=== PATIENT | male | born 1930 | race Caucasian/White ===

== ENCOUNTER 2017-06-12 11:44 | Inpatient (IN) | payer MEDICARE, BC ==
--- NOTE | 2017-06-12 12:01 | EDM.PDOC ---
<Flako Wilde - Last Filed: 06/12/17 12:16> ED HPI GENERAL MEDICAL PROBLEM - General Chief Complaint: General Stated Complaint: OX STAT LOW, LOW FEVER Time Seen by Provider: 06/12/17 12:00 Source of Information: Reports: Patient, Correction Records History Limitations: Reports: No Limitations - History of Present Illness INITIAL COMMENTS - FREE TEXT/NARRATIVE: History of present illness: [Fragile 86 rolled male brought in by [facility] the other bus. Indicating the patient has had low oxygen saturations as well as a low-grade fever. Upon arrival when patient was sitting up his O2 saturation was 85% on room air.] Review of systems: As per history of present illness and below otherwise all systems reviewed and negative. Past medical history: As per history of present illness and as reviewed below otherwise noncontributory. Surgical history: As per history of present illness and as reviewed below otherwise noncontributory. Social history: No reported history of drug or alcohol abuse. Family history: As per history of present illness and as reviewed below otherwise noncontributory. Physical exam: HEENT: Atraumatic, normocephalic, pupils reactive, negative for conjunctival pallor or scleral icterus, mucous membranes moist, throat clear, neck supple, nontender, trachea midline. Lungs: Clear to auscultation, breath sounds equal bilaterally, chest nontender. Heart: S1S2, regular, negative for clicks, rubs, or JVD. Abdomen: Soft, nondistended, nontender. Negative for masses or hepatosplenomegaly. Negative for costovertebral tenderness. Pelvis: Stable nontender. Genitourinary: Deferred. Rectal: Deferred. Extremities: Atraumatic, negative for cords or calf pain. Neurovascular unremarkable. Neuro: Arousable and lethargic. Able to follow simple commands but presents with a very flat affect. Skin: Pale without diaphoresis. Dr. Bentley in ED to see and evaluate the patient for admission Diagnostics: [CBC, CMP, lactic acid, lipase, amylase, blood cultures, chest x-ray] Therapeutics: [Saline lock] Impression: [#1 leukocytosis with history of aspiration rule out pneumonia] Plan: [Admit to [facility]Sur telemetry] Definitive disposition and diagnosis as appropriate pending reevaluation and review of above. - Related Data Allergies Allergy/AdvReac Type Severity Reaction Status Date / Time No Known Allergies Allergy Verified 06/12/17 12:04 Home Meds: Home Meds Acetaminophen [Tylenol Extra Strength] 1,000 mg PO BID 01/28/14 [History] Aspirin [Adult Low Dose Aspirin EC] 81 mg PO DAILY 01/28/14 [History] Carbidopa/Levodopa [Sinemet 25-100 mg] 25 - 100 mg PO TID 01/28/14 [History] Losartan Potassium 50 mg PO DAILY 01/28/14 [History] Nitroglycerin [Nitroglycerin Patch 0.1 MG/Hr] 1 patch TRDERM DAILY 01/28/14 [ History] Polyethylene Glycol 3350 [MiraLAX] 17 gm PO ASDIRECTED PRN 01/28/14 [History] Sertraline [Zoloft] 100 mg PO DAILY 01/28/14 [History] Diltiazem [Cardizem CD] 180 mg PO DAILY 03/18/16 [History] Memantine HCl [Namenda Xr] 1 tab PO DAILY 03/18/16 [History] buPROPion HCl [Wellbutrin Xl] 150 mg PO DAILY 06/12/17 [History] Past Medical History Cardiovascular History: Reports: Heart Murmur, Hypertension Genitourinary History: Reports: Other (See Below) Other Genitourinary History: suprapubic cath Neurological History: Reports: Parkinson's Dermatologic History: Reports: Other (See Below) Other Dermatologic History: malignant neoplasm of skin Social & Family History - Family History Family Medical History: Noncontributory - Tobacco Use Smoking Status *Q: Never Smoker Second Hand Smoke Exposure: No - Alcohol Use Days Per Week of Alcohol Use: 0 - Recreational Drug Use Recreational Drug Use: No ED ROS GENERAL - Review of Systems Review Of Systems: See Below (See history of present illness) ED EXAM, GENERAL - Physical Exam Exam: See Below (History of present illness) Course - Vital Signs Last Recorded V/S: Last Vital Signs Temp 36.8 C 06/12/17 11:56 Pulse 71 06/12/17 11:56 Resp 16 06/12/17 12:38 BP 115/63 06/12/17 12:38 Pulse Ox 96 06/12/17 12:38 - Orders/Labs/Meds Orders: Active Orders 24 hr Category Date Time Status Chest 2V [CR] Stat Exams 06/12/17 11:51 Taken Saline Lock Insert [OM.PC] Stat Oth 06/12/17 12:01 Ordered Medication Orders Acetaminophen (Tylenol) 650 mg RECTAL Q4H PRN PRN Reason: Pain (mild 1-3) Acetaminophen (Tylenol Extra Strength) 1,000 mg PO BID [facility] Aspirin (Halfprin) 81 mg PO DAILY [facility] Bupropion HCl (Wellbutrin Xl) 150 mg PO DAILY [facility] Diltiazem HCl (Cardizem Cd) 180 mg PO DAILY [facility] Enoxaparin Sodium (Lovenox) 30 mg SUBCUT DAILY [facility] Sodium Chloride (Normal Saline) 1,000 mls @ 50 mls/hr IV ASDIRECTED [facility] Piperacillin Sod/Tazobactam (Sod 2.25 gm/ Sodium Chloride) 50 mls @ 100 mls/hr IV Q6H [facility] Losartan Potassium (Cozaar) 50 mg PO DAILY [facility] Morphine Sulfate (Morphine) 2 mg IVPUSH Q2H PRN PRN Reason: Pain (severe 7-10) Stop: 06/13/17 13:48 Non-Formulary Medication (Memantine Hcl) 1 tab PO DAILY [facility] Polyethylene Glycol (Miralax) 17 gm PO ASDIRECTED PRN PRN Reason: Constipation Sertraline HCl (Zoloft) 100 mg PO DAILY [facility] Vancomycin HCl (Pharmacy To Dose - Vancomycin) 1 dose .XX ASDIRECTED [facility] Labs: Laboratory Tests 06/12/17 06/12/17 06/12/17 Range/Units 11:58 11:58 11:58 WBC 20.50 H (4.0-11.0) K/uL RBC 3.41 L (4.50-5.90) M/uL Hgb 9.1 L (13.0-17.0) g/dL Hct 28.0 L (38.0-50.0) % MCV 82.1 (80.0-98.0) fL MCH 26.7 L (27.0-32.0) pg MCHC 32.5 (31.0-37.0) g/dL RDW Std Deviation 48.4 (28.0-62.0) fl RDW Coeff of Page 16 H (11.0-15.0) % Plt Count 353 (150-400) K/uL MPV 9.00 (7.40-12.00) fL Neut % (Auto) 81.2 H (48.0-80.0) % Lymph % (Auto) 11.2 L (16.0-40.0) % [place] % (Auto) 7.5 (0.0-15.0) % Eos % (Auto) 0.1 (0.0-7.0) % Baso % (Auto) 0.0 (0.0-1.5) % Neut # (Auto) 16.7 H (1.4-5.7) K/uL Lymph # (Auto) 2.3 (0.6-2.4) K/uL [place] # (Auto) 1.5 H (0.0-0.8) K/uL Eos # (Auto) 0.0 (0.0-0.7) K/uL Baso # (Auto) 0.0 (0.0-0.1) K/uL Nucleated RBC % 0.0 /100WBC Nucleated RBCs # 0 K/uL Lactate 2.3 H (0.20-2.00) mmol/L Sodium 136 (136-146) mmol/L Potassium 4.3 (3.5-5.1) mmol/L Chloride 103 (98-110) mmol/L Carbon Dioxide 23 (21-31) mmol/L BUN 22 (6.0-23.0) mg/dL Creatinine 1.3 (0.6-1.5) mg/dL Est Cr Clr Drug Dosing 34.62 mL/min Estimated GFR (MDRD) 52.3 ml/min Glucose 149 H (60-110) mg/dL Calcium 8.7 L (8.8-10.8) mg/dL Total Bilirubin 0.4 (0.1-1.5) mg/dL AST 16 (5-40) IU/L ALT < 6 L (8-54) IU/L Alkaline Phosphatase 57 (40-150) Total Protein 6.7 (6.0-8.0) g/dL Albumin 3.6 (3.4-4.8) g/dL Globulin 3.1 (2.0-3.5) g/dL Albumin/Globulin Ratio 1.2 L (1.3-2.8) Amylase 47 (10-90) U/L Lipase 17 (7-80) U/L Meds: Medications Generic Name Dose Route Start Last Admin Trade Name Freq PRN Reason Stop Dose Admin Acetaminophen 650 mg 06/12/17 13:42 Tylenol RECTAL Q4H PRN Pain (mild 1-3) Acetaminophen 1,000 mg 06/12/17 21:00 Tylenol Extra Strength PO BID [facility] Aspirin 81 mg 06/13/17 09:00 Halfprin PO DAILY [facility] Bupropion HCl 150 mg 06/13/17 09:00 Wellbutrin Xl PO DAILY [facility] Diltiazem HCl 180 mg 06/13/17 09:00 Cardizem Cd PO DAILY [facility] Enoxaparin Sodium 30 mg 06/13/17 09:00 Lovenox SUBCUT DAILY [facility] Sodium Chloride 1,000 mls @ 50 mls/hr 06/12/17 13:45 Normal Saline IV ASDIRECTED [facility] Piperacillin Sod/Tazobactam 50 mls @ 100 mls/hr 06/12/17 14:00 Sod 2.25 gm/ Sodium Chloride IV Q6H [facility] Losartan Potassium 50 mg 06/13/17 09:00 Cozaar PO DAILY [facility] Morphine Sulfate 2 mg 06/12/17 13:42 Morphine IVPUSH 06/13/17 13:48 Q2H PRN Pain (severe 7-10) Non-Formulary Medication 1 tab 06/13/17 09:00 Memantine Hcl PO DAILY [facility] Polyethylene Glycol 17 gm 06/12/17 13:48 Miralax PO ASDIRECTED PRN Constipation Sertraline HCl 100 mg 06/13/17 09:00 Zoloft PO DAILY [facility] Vancomycin HCl 1 dose 06/12/17 14:00 Pharmacy To Dose - Vancomycin .XX ASDIRECTED [facility] Departure - Departure Time of Disposition: 12:49 Disposition: Admitted As Inpatient 66 Condition: Good Clinical Impression: Leukocytosis - Discharge Information <Carlene Loja Rubia - Last Filed: 06/12/17 13:56> ED HPI GENERAL MEDICAL PROBLEM - History of Present Illness INITIAL COMMENTS - FREE TEXT/NARRATIVE: Please correct the history of present illness to state that the patient on arrival was sitting upright in bed with an O2 sat of 95-96% on room air. That was a typographical error. Please also note that the patient had had a video swallow test in March of this year which he failed an according to staff they have been giving him pure foods and it is unclear how he is tolerating them and if they could have been repeat aspiration considering his history.
[2017-06-12 12:32] LABS: CHLORIDE,CL 103 mmol/L (98-110); SODIUM,NA 136 mmol/L (136-146)
[2017-06-12] MEDS ORDERED: Morphine 2 MG/ML Syringe IVPUSH PRN (13:42)
[2017-06-12] MEDS ORDERED: Acetaminophen 650 MG Supp RECTAL PRN (13:42)
[2017-06-12] MEDS ORDERED: Polyethylene Glycol 3350 Powder 17 GM Packet PO PRN (13:48)
--- NOTE | 2017-06-12 13:54 | PCM.HP ---
H&P History of Present Illness - General Date of Service: 06/12/17 Admit Problem/Dx: Admission Diagnosis/Problem Admission Diagnosis/Problem Aspiration pneumonia due to gastric secretions Source of Information: EMS Notes Reviewed, Family, Old Records History Limitations: Reports: Altered Mental Status - History of Present Illness Initial Comments - Free Text/Narative: The patient is a 86-year-old gentleman who is presented from detention primarily out of concern for alterations in his mental status, low-grade fever and low oxygen saturations. The patient has been a resident of the detention for approximately one year. The patient does have a history of severe Parkinson' s disease and last year was noted to have aspiration with thin liquids and was recommended that he be on a pured diet. The patient at the present time is somewhat altered secondary to the dementia and he is not considered to be a reliable historian. The patient's information has been taken from his emergency room charting and his lives apart from him. The patient has denied any pain. He's had no cough. The patient seems to be in no pain secondary to his bland reaction. The patient has Parkinson's and this is to be expected. The patient will open his eyes to command and he is hard of hearing. Onset of Symptoms: Reports: Gradual, Unknown/Unsure Duration of Symptoms: Reports: Chronic Location: Reports: Generalized Severity: Mild Improves with: Reports: None Worsens with: Reports: None Associated Symptoms: Reports: Fever/Chills, Shortness of Breath - Related Data Allergies/Adverse Reactions: Allergies Allergy/AdvReac Type Severity Reaction Status Date / Time No Known Allergies Allergy Verified 06/12/17 12:04 Home Medications: Home Meds Acetaminophen [Tylenol Extra Strength] 1,000 mg PO BID 01/28/14 [History] Aspirin [Adult Low Dose Aspirin EC] 81 mg PO DAILY 01/28/14 [History] Carbidopa/Levodopa [Sinemet 25-100 mg] 25 - 100 mg PO TID 01/28/14 [History] Losartan Potassium 50 mg PO DAILY 01/28/14 [History] Nitroglycerin [Nitroglycerin Patch 0.1 MG/Hr] 1 patch TRDERM DAILY 01/28/14 [ History] Polyethylene Glycol 3350 [MiraLAX] 17 gm PO ASDIRECTED PRN 01/28/14 [History] Sertraline [Zoloft] 100 mg PO DAILY 01/28/14 [History] Diltiazem [Cardizem CD] 180 mg PO DAILY 03/18/16 [History] Memantine HCl [Namenda Xr] 1 tab PO DAILY 03/18/16 [History] buPROPion HCl [Wellbutrin Xl] 150 mg PO DAILY 06/12/17 [History] Past Medical History HEENT History: Reports: Other (See Below) Other HEENT History: Dysphagia Cardiovascular History: Reports: Heart Murmur, Hypertension Respiratory History: Reports: SOB Genitourinary History: Reports: Other (See Below) Other Genitourinary History: suprapubic cath Musculoskeletal History: Reports: Other (See Below) Other Musculoskeletal History: weakness and inability to ambulate Neurological History: Reports: Parkinson's Other Neuro History: Dementia with Lewy Bodies. Psychiatric History: Reports: Dementia, Depression Endocrine/Metabolic History: Reports: None Hematologic History: Reports: Anemia Oncologic (Cancer) History: Reports: Other (See Below) Other Oncologic History: skin Dermatologic History: Reports: Other (See Below) Other Dermatologic History: malignant neoplasm of skin Social & Family History - Family History Family Medical History: Noncontributory - Tobacco Use Smoking Status *Q: Never Smoker Years of Tobacco use: 15 Packs/Tins Daily: 0.1 Used Tobacco, but Quit: Yes Month Tobacco Last Used: 1968 Second Hand Smoke Exposure: No - Caffeine Use Caffeine Use: Reports: None - Alcohol Use Days Per Week of Alcohol Use: 0 - Recreational Drug Use Recreational Drug Use: No - Living Situation & Occupation Living situation: Reports: Extended Care Facility Occupation: Retired H&P Review of Systems - Review of Systems: Review Of Systems: Unable To Obtain HEENT: Reports: Other (Hard of hearing) Exam - Exam Exam: See Below - Vital Signs Vital Signs: Last Vital Signs Temp 36.8 C 06/12/17 11:56 Pulse 71 06/12/17 11:56 Resp 16 06/12/17 11:56 BP 121/68 06/12/17 11:56 Pulse Ox 95 06/12/17 11:56 Weight: 60 kg - Exam Quality Assessment: No: Supplemental Oxygen General: Cooperative. No: Alert, Oriented HEENT: No: Mucosa Moist & Horace (Very dry) Neck: Supple, Trachea Midline Lungs: Decreased Breath Sounds, Rales Cardiovascular: Regular Rate, Regular Rhythm GI/Abdominal Exam: Soft, Non-Tender, Abnormal Bowel Sounds. No: Guarding Back Exam: Decreased Range of Motion Extremities: No Pedal Edema Skin: Warm, Dry Neuro Extensive - Mental Status: No: Alert, Oriented x3 Psychiatric: Other (Altered) - Patient Data Result Diagrams: 06/12/17 11:58 06/12/17 11:58 *Q Meaningful Use (ADM) - VTE *Q VTE Criteria *Q: VTE Mechanical Contraindications *Q: At Risk for Falls - VTE Risk Assess *Q Each Risk Factor Represents 1 Point: Serious Lung Disease Including Pneumonia, Less than 1 Month Total Score 1 Point Risk Factors: 1 Each Risk Factor Represents 3 Points: Age 75 Years or Greater Total Score 3 Point Risk Factors: 3 - Stroke *Q Stroke Criteria *Q: - AMI *Q AMI Criteria *Q: - Problem List (1) Aspiration pneumonia due to food (regurgitated) SNOMED Code(s): 29808635 ICD Code: J69.0 - PNEUMONITIS DUE TO INHALATION OF FOOD AND VOMIT Status: Acute Current Visit: Yes Problem Details: The patient is dehydrated Qualifiers: Laterality: unspecified laterality Lung location: unspecified part of lung Qualified Code(s): J69.0 - Pneumonitis due to inhalation of food and vomit (2) Hypoxia SNOMED Code(s): 585003964, 667096724 ICD Code: R09.02 - HYPOXEMIA Status: Chronic Priority: Medium Current Visit: Yes (3) Parkinson's disease dementia SNOMED Code(s): 222806602 ICD Code: G20 - PARKINSON'S DISEASE; F02.80 - DEMENTIA IN OTH DISEASES CLASSD ELSWHR W/O BEHAVRL DISTURB Status: Chronic Priority: Medium Current Visit: Yes Qualifiers: Dementia behavioral disturbance: without behavioral disturbance Qualified Code(s): G20 - Parkinson's disease; F02.80 - Dementia in other diseases classified elsewhere without behavioral disturbance (4) Dysphagia SNOMED Code(s): 20093649, 410654325 ICD Code: R13.10 - DYSPHAGIA, UNSPECIFIED Status: Chronic Priority: High Current Visit: Yes Qualifiers: Dysphagia type: unspecified Qualified Code(s): R13.10 - Dysphagia, unspecified (5) Anemia, chronic disease SNOMED Code(s): 294860051 ICD Code: D63.8 - ANEMIA IN OTHER CHRONIC DISEASES CLASSIFIED ELSEWHERE Status: Chronic Priority: Medium Current Visit: Yes (6) Altered mental status SNOMED Code(s): 350555212 ICD Code: R41.82 - ALTERED MENTAL STATUS, UNSPECIFIED Status: Chronic Priority: Medium Current Visit: Yes Qualifiers: Altered mental status type: disorientation Qualified Code(s): R41.0 - Disorientation, unspecified Problem List Initiated/Reviewed/Updated: Yes Orders Last 24hrs: Active Orders 24 hr Category Date Time Status Patient Status [ADT] Routine ADT 06/12/17 13:42 Ordered Bedrest Bedside Commode [RC] ASDIRECTED Care 06/12/17 13:42 Ordered Oxygen Therapy [RC] PRN Care 06/12/17 13:42 Ordered Pulse Oximetry [RC] CONTINUOUS Care 06/12/17 13:45 Ordered Urinary Catheter Assessment [RC] ASDIRECTED Care 06/12/17 13:42 Ordered VTE/DVT Education [RC] PER UNIT ROUTINE Care 06/12/17 13:42 Ordered Vital Signs [RC] Q4H Care 06/12/17 13:42 Ordered Mechanical Soft Diet [DIET] Diet 06/12/17 Dinner Ordered CBC WITH AUTO DIFF [HEME] AM Lab 06/13/17 05:11 Ordered COMPREHENSIVE METABOLIC PN,CMP [CHEM] AM Lab 06/13/17 05:11 Ordered MAGNESIUM [CHEM] AM Lab 06/13/17 05:11 Ordered PHOSPHORUS [CHEM] AM Lab 06/13/17 05:11 Ordered UA W/O MICROSCOPIC [URIN] Routine Lab 06/12/17 13:51 Uncollected Acetaminophen [Tylenol Extra Strength] Med 06/12/17 21:00 Ordered 1,000 mg PO BID Acetaminophen [Tylenol] Med 06/12/17 13:42 Ordered 650 mg RECTAL Q4H PRN Aspirin [Halfprin] Med 06/13/17 09:00 Ordered 81 mg PO DAILY Diltiazem [Cardizem CD] Med 06/13/17 09:00 Ordered 180 mg PO DAILY Enoxaparin [Lovenox] Med 06/13/17 09:00 Ordered 30 mg SUBCUT DAILY Losartan [Cozaar] Med 06/13/17 09:00 Ordered 50 mg PO DAILY Memantine HCl Med 06/13/17 09:00 Ordered 1 tab PO DAILY Morphine Med 06/12/17 13:42 Ordered 2 mg IVPUSH Q2H PRN Piperacillin/Tazobactam [Zosyn] 2.25 gm Med 06/12/17 14:00 Ordered Sodium Chloride 0.9% [Normal Saline] 50 ml IV Q6H Polyethylene Glycol 3350 [MiraLAX] Med 06/12/17 13:48 Ordered 17 gm PO ASDIRECTED PRN Sertraline [Zoloft] Med 06/13/17 09:00 Ordered 100 mg PO DAILY Sodium Chloride 0.9% [Normal Saline] 1,000 ml Med 06/12/17 13:45 Ordered IV ASDIRECTED Vancomycin Pharmacy to Dose [Pharmacy to Dose - Med 06/12/17 14:00 Ordered Vancomycin] 1 dose .XX ASDIRECTED buPROPion [Wellbutrin XL] Med 06/13/17 09:00 Ordered 150 mg PO DAILY Resuscitation Status Routine Resus Stat 06/12/17 13:42 Ordered Medication Orders Acetaminophen (Tylenol) 650 mg RECTAL Q4H PRN PRN Reason: Pain (mild 1-3) Acetaminophen (Tylenol Extra Strength) 1,000 mg PO BID [facility] Aspirin (Halfprin) 81 mg PO DAILY [facility] Bupropion HCl (Wellbutrin Xl) 150 mg PO DAILY [facility] Diltiazem HCl (Cardizem Cd) 180 mg PO DAILY [facility] Enoxaparin Sodium (Lovenox) 30 mg SUBCUT DAILY [facility] Sodium Chloride (Normal Saline) 1,000 mls @ 50 mls/hr IV ASDIRECTED [facility] Piperacillin Sod/Tazobactam (Sod 2.25 gm/ Sodium Chloride) 50 mls @ 100 mls/hr IV Q6H [facility] Losartan Potassium (Cozaar) 50 mg PO DAILY [facility] Morphine Sulfate (Morphine) 2 mg IVPUSH Q2H PRN PRN Reason: Pain (severe 7-10) Stop: 06/13/17 13:48 Non-Formulary Medication (Memantine Hcl) 1 tab PO DAILY [facility] Polyethylene Glycol (Miralax) 17 gm PO ASDIRECTED PRN PRN Reason: Constipation Sertraline HCl (Zoloft) 100 mg PO DAILY [facility] Assessment/Plan Comment:: The patient is a frail, chronically ill 86-year-old gentleman who was sent to the emergency department by [facility]. The patient does have a history of Parkinson's dementia and he is somewhat apparently altered from his baseline. The patient's oxygen saturations were in the 80s while he was at the home. Because of the patient's dysphagia and his being on a pured diet is likely that the patient has aspiration pneumonia along with dehydration that is not readily apparent on his chest x-ray. Regardless, I think it's important that we treat him for aspiration pneumonia with the use of vancomycin and Zosyn that of both been renally dosed. I suspect that once the patient is gently hydrated that he'll have a greater likelihood of appearance of pneumonia on his chest x-ray. The patient is also anemic and this is likely chronic for him but with fluid resuscitation I expect this to drop. The patient will have close monitoring with daily CBCs while he is here. The patient will also have oxygen support to keep his oxygen saturations above 90%. I've ordered a CBC, comprehensive metabolic panel, magnesium and phosphorus the morning. The patient 's leukocytosis should improve somewhat with the fluids. Once the patient is stabilized, his white cell count has normalized, his oxygen saturations have improved the patient taken center to be appropriate for discharge back to [facility] with oral antibiotics. This may take 2-3 days. This is the reason that he is admitted as an inpatient.
[2017-06-12] MEDS: Sodium Chloride 0.9% 1,000 ML IV SCH (14:43)
[2017-06-12] MEDS: Piperacillin/Tazobactam 2.25 GM in Sodium Chloride 0.9% 50 ML IV SCH ×2 (14:55→21:21)
[2017-06-12] MEDS: Carbidopa/Levodopa 25-100 MG Tab PO SCH ×2 (16:26→21:24)
[2017-06-12] MEDS: Acetaminophen 500 MG Tab PO SCH (21:24)
[2017-06-13] MEDS: Sodium Chloride 0.9% 1,000 ML IV SCH ×2 (01:06→10:21)
[2017-06-13] MEDS: Piperacillin/Tazobactam 2.25 GM in Sodium Chloride 0.9% 50 ML IV SCH ×4 (01:23→20:59)
[2017-06-13] MEDS: Carbidopa/Levodopa 25-100 MG Tab PO SCH ×3 (05:30→21:05)
[2017-06-13 07:19] LABS: CHLORIDE,CL 107 mmol/L (98-110); SODIUM,NA 137 mmol/L (136-146)
[2017-06-13] MEDS: Losartan 50 MG Tab PO SCH (08:17)
[2017-06-13] MEDS: Diltiazem 180 MG Cap.CD PO SCH (08:24)
[2017-06-13] MEDS: Acetaminophen 500 MG Tab PO SCH ×2 (08:24→20:25)
[2017-06-13] MEDS: buPROPion 150 MG Tab.ER PO SCH (08:26)
[2017-06-13] MEDS: Sertraline 100 MG Tab PO SCH (08:26)
[2017-06-13] MEDS: Aspirin 81 MG Tab.EC PO SCH (08:26)
[2017-06-13] MEDS: MEMANTINE HCL 28 MG PO SCH (08:27)
[2017-06-13] MEDS: Heparin Sodium 5,000 Units/ML Vial SUBCUT SCH ×2 (08:46→20:24)
[2017-06-13] MEDS ORDERED: Enoxaparin 30 MG/0.3 ML Syringe SUBCUT SCH (09:00)
[2017-06-13] MEDS ORDERED: diphenhydrAMINE 50 MG Cap PO ONE (13:23)
--- NOTE | 2017-06-13 15:41 | PCM.PN ---
- General Info Date of Service: 06/13/17 Admission Dx/Problem (Free Text): Admission Diagnosis/Problem Admission Diagnosis/Problem Aspiration pneumonia due to gastric secretions Subjective Update: The patient seems more alert today. Functional Status: Reports: Pain Controlled - Review of Systems Systems Review Comment:: Not able to participate in review of systems - Patient Data Vitals - Most Recent: Last Vital Signs Temp 37.1 C 06/13/17 14:14 Pulse 72 06/13/17 14:14 Resp 16 06/13/17 14:14 BP 153/70 H 06/13/17 14:14 Pulse Ox 100 06/13/17 14:14 Weight - Most Recent: 60 kg I&O - Last 24 Hours: Intake & Output 06/13/17 06/13/17 06/13/17 06:59 14:59 22:59 Intake Total 1530 674 Output Total 400 Balance 1130 674 Lab Results Last 24 Hours: Laboratory Results - last 24 hr 06/12/17 06/13/17 06/13/17 Range/Units 17:30 06:40 06:40 WBC 17.72 H (4.0-11.0) K/uL RBC 2.64 L (4.50-5.90) M/uL Hgb 6.8 L (13.0-17.0) g/dL Hct 21.4 L (38.0-50.0) % MCV 81.1 (80.0-98.0) fL MCH 25.8 L (27.0-32.0) pg MCHC 31.8 (31.0-37.0) g/dL RDW Std Deviation 48.4 (28.0-62.0) fl RDW Coeff of Page 16 H (11.0-15.0) % Plt Count 280 (150-400) K/uL MPV 8.60 (7.40-12.00) fL Neut % (Auto) 79.8 (48.0-80.0) % Lymph % (Auto) 11.3 L (16.0-40.0) % [place] % (Auto) 8.2 (0.0-15.0) % Eos % (Auto) 0.5 (0.0-7.0) % Baso % (Auto) 0.2 (0.0-1.5) % Neut # (Auto) 14.1 H (1.4-5.7) K/uL Lymph # (Auto) 2.0 (0.6-2.4) K/uL [place] # (Auto) 1.5 H (0.0-0.8) K/uL Eos # (Auto) 0.1 (0.0-0.7) K/uL Baso # (Auto) 0.0 (0.0-0.1) K/uL Nucleated RBC % 0.0 /100WBC Nucleated RBCs # 0 K/uL Lactate 1.5 (0.20-2.00) mmol/L Sodium 137 (136-146) mmol/L Potassium 3.9 (3.5-5.1) mmol/L Chloride 107 (98-110) mmol/L Carbon Dioxide 25 (21-31) mmol/L BUN 21 (6.0-23.0) mg/dL Creatinine 1.0 (0.6-1.5) mg/dL Est Cr Clr Drug Dosing 45.00 mL/min Estimated GFR (MDRD) > 60.0 ml/min Glucose 131 H (60-110) mg/dL Calcium 8.2 L (8.8-10.8) mg/dL Phosphorus 2.5 (2.4-4.7) mg/dL Magnesium 1.5 (1.5-2.3) mEq/L Total Bilirubin 0.5 (0.1-1.5) mg/dL AST 11 (5-40) IU/L ALT < 6 L (8-54) IU/L Alkaline Phosphatase 46 (40-150) Total Protein 5.5 L (6.0-8.0) g/dL Albumin 3.1 L (3.4-4.8) g/dL Globulin 2.4 (2.0-3.5) g/dL Albumin/Globulin Ratio 1.3 (1.3-2.8) Blood Type Antibody Screen Crossmatch 06/13/17 Range/Units 11:43 WBC (4.0-11.0) K/uL RBC (4.50-5.90) M/uL Hgb (13.0-17.0) g/dL Hct (38.0-50.0) % MCV (80.0-98.0) fL MCH (27.0-32.0) pg MCHC (31.0-37.0) g/dL RDW Std Deviation (28.0-62.0) fl RDW Coeff of Page (11.0-15.0) % Plt Count (150-400) K/uL MPV (7.40-12.00) fL Neut % (Auto) (48.0-80.0) % Lymph % (Auto) (16.0-40.0) % [place] % (Auto) (0.0-15.0) % Eos % (Auto) (0.0-7.0) % Baso % (Auto) (0.0-1.5) % Neut # (Auto) (1.4-5.7) K/uL Lymph # (Auto) (0.6-2.4) K/uL [place] # (Auto) (0.0-0.8) K/uL Eos # (Auto) (0.0-0.7) K/uL Baso # (Auto) (0.0-0.1) K/uL Nucleated RBC % /100WBC Nucleated RBCs # K/uL Lactate (0.20-2.00) mmol/L Sodium (136-146) mmol/L Potassium (3.5-5.1) mmol/L Chloride (98-110) mmol/L Carbon Dioxide (21-31) mmol/L BUN (6.0-23.0) mg/dL Creatinine (0.6-1.5) mg/dL Est Cr Clr Drug Dosing mL/min Estimated GFR (MDRD) ml/min Glucose (60-110) mg/dL Calcium (8.8-10.8) mg/dL Phosphorus (2.4-4.7) mg/dL Magnesium (1.5-2.3) mEq/L Total Bilirubin (0.1-1.5) mg/dL AST (5-40) IU/L ALT (8-54) IU/L Alkaline Phosphatase (40-150) Total Protein (6.0-8.0) g/dL Albumin (3.4-4.8) g/dL Globulin (2.0-3.5) g/dL Albumin/Globulin Ratio (1.3-2.8) Blood Type A NEGATIVE Antibody Screen NEGATIVE Crossmatch See Detail Med Orders - Current: Current Medications Acetaminophen (Tylenol) 650 mg RECTAL Q4H PRN PRN Reason: Pain (mild 1-3) Acetaminophen (Tylenol Extra Strength) 1,000 mg PO BID [facility] Last Admin: 06/13/17 08:24 Dose: 1,000 mg Aspirin (Halfprin) 81 mg PO DAILY [facility] Last Admin: 06/13/17 08:26 Dose: 81 mg Bupropion HCl (Wellbutrin Xl) 150 mg PO DAILY [facility] Last Admin: 06/13/17 08:26 Dose: 150 mg Carbidopa/Levodopa (Sinemet 25-100 Mg) 1 tab PO TID [facility] Last Admin: 06/13/17 13:12 Dose: 1 tab Diltiazem HCl (Cardizem Cd) 180 mg PO DAILY [facility] Last Admin: 06/13/17 08:24 Dose: 180 mg Furosemide (Lasix) 20 mg IV Q4H [facility] Stop: 06/13/17 20:01 Heparin Sodium (Porcine) (Heparin Sodium) 5,000 units SUBCUT BID [facility] Last Admin: 06/13/17 08:46 Dose: 5,000 units Sodium Chloride (Normal Saline) 1,000 mls @ 125 mls/hr IV ASDIRECTED [facility] Last Admin: 06/13/17 10:21 Dose: 125 mls/hr Piperacillin Sod/Tazobactam (Sod 2.25 gm/ Sodium Chloride) 50 mls @ 100 mls/hr IV Q6H [facility] Last Admin: 06/13/17 13:10 Dose: 100 mls/hr Vancomycin HCl 1 gm/ Sodium (Chloride) 250 mls @ 166.667 mls/hr IV Q24H [facility] Last Admin: 06/13/17 14:27 Dose: 166.667 mls/hr Losartan Potassium (Cozaar) 50 mg PO DAILY [facility] Last Admin: 06/13/17 08:17 Dose: 50 mg Memantine Hcl 1 Tab (28mg Er) 1 each PO DAILY [facility] Last Admin: 06/13/17 08:27 Dose: 1 each Polyethylene Glycol (Miralax) 17 gm PO ASDIRECTED PRN PRN Reason: Constipation Sertraline HCl (Zoloft) 100 mg PO DAILY [facility] Last Admin: 06/13/17 08:26 Dose: 100 mg Vancomycin HCl (Pharmacy To Dose - Vancomycin) 1 dose .XX ASDIRECTED [facility] Discontinued Medications Diphenhydramine HCl (Benadryl) 50 mg PO ONETIME ONE Stop: 06/13/17 13:24 Last Admin: 06/13/17 13:39 Dose: 50 mg Furosemide 20 mg/ Sodium (Chloride) 52 mls @ 100 mls/hr IV Q4HR [facility] Stop: 06/13/17 20:32 Morphine Sulfate (Morphine) 2 mg IVPUSH Q2H PRN PRN Reason: Pain (severe 7-10) Stop: 06/13/17 13:48 - Exam Quality Assessment: No: Supplemental Oxygen General: Cooperative, No Acute Distress. No: Alert HEENT: Pupils Equal, Pupils Reactive Neck: Supple, Trachea Midline Lungs: Clear to Auscultation, Normal Respiratory Effort Cardiovascular: Regular Rate GI/Abdominal Exam: Normal Bowel Sounds, Soft, No Distention Back Exam: Decreased Range of Motion Extremities: No Pedal Edema Skin: Warm, Dry Neurological: No New Focal Deficit Psy/Mental Status: Normal Affect. No: Alert - Problem List & Annotations (1) Aspiration pneumonia due to food (regurgitated) SNOMED Code(s): 67328312 Code(s): J69.0 - PNEUMONITIS DUE TO INHALATION OF FOOD AND VOMIT Status: Acute Current Visit: Yes Qualifiers: Laterality: unspecified laterality Lung location: unspecified part of lung Qualified Code(s): J69.0 - Pneumonitis due to inhalation of food and vomit Annotation/Comment:: The patient is dehydrated (2) Hypoxia SNOMED Code(s): 465391731, 761058548 Code(s): R09.02 - HYPOXEMIA Status: Chronic Priority: Medium Current Visit: Yes (3) Parkinson's disease dementia SNOMED Code(s): 493122345 Code(s): G20 - PARKINSON'S DISEASE; F02.80 - DEMENTIA IN OTH DISEASES CLASSD ELSWHR W/O BEHAVRL DISTURB Status: Chronic Priority: Medium Current Visit : Yes Qualifiers: Dementia behavioral disturbance: without behavioral disturbance Qualified Code(s): G20 - Parkinson's disease; F02.80 - Dementia in other diseases classified elsewhere without behavioral disturbance (4) Dysphagia SNOMED Code(s): 14567128, 417094106 Code(s): R13.10 - DYSPHAGIA, UNSPECIFIED Status: Chronic Priority: High Current Visit: Yes Qualifiers: Dysphagia type: unspecified Qualified Code(s): R13.10 - Dysphagia, unspecified (5) Anemia, chronic disease SNOMED Code(s): 133594030 Code(s): D63.8 - ANEMIA IN OTHER CHRONIC DISEASES CLASSIFIED ELSEWHERE Status: Chronic Priority: Medium Current Visit: Yes Annotation/Comment:: Transfused 2 units of packed red blood cells (6) Altered mental status SNOMED Code(s): 596807695 Code(s): R41.82 - ALTERED MENTAL STATUS, UNSPECIFIED Status: Chronic Priority: Medium Current Visit: Yes Qualifiers: Altered mental status type: disorientation Qualified Code(s): R41.0 - Disorientation, unspecified - Problem List Review Problem List Initiated/Reviewed/Updated: Yes - My Orders Last 24 Hours: My Active Orders 06/12/17 14:45 Vancomycin [Vancocin] 1 gm Sodium Chloride 0.9% [Normal Saline] 250 ml IV Q24H 06/12/17 15:37 Carbidopa/Levodopa [Sinemet 25-100 mg] 1 tab PO TID 06/12/17 18:05 Consult to Speech Language Pathology [GUIDE [employer]G TRAINER Evaluation and Treatment] [CONS] Routine 06/12/17 21:00 Acetaminophen [Tylenol Extra Strength] 1,000 mg PO BID 06/12/17 Dinner Pureed Diet [DIET] 06/13/17 09:00 Aspirin [Halfprin] 81 mg PO DAILY Diltiazem [Cardizem CD] 180 mg PO DAILY Heparin Sodium 5,000 units SUBCUT BID Losartan [Cozaar] 50 mg PO DAILY Patient's Own Medication [Ptom] 1 each PO DAILY Sertraline [Zoloft] 100 mg PO DAILY buPROPion [Wellbutrin XL] 150 mg PO DAILY 06/13/17 11:02 Modified Barium Swallow Study [Swallowing Function w Video] [CR] Routine 06/13/17 11:33 Transfuse PRBC [Transfuse Red Blood Cells] [COMM] Routine 06/13/17 11:43 RED BLOOD CELLS LP [BBK] Routine TYPE AND SCREEN [BBK] Routine 06/13/17 13:06 Transfuse PRBC [Transfuse Red Blood Cells] [COMM] Routine 06/13/17 16:00 Furosemide [Lasix] 20 mg IV Q4H 06/15/17 14:00 VANCOMYCIN TROUGH [CHEM] Routine - Plan Plan:: The patient is chronically ill 86-year-old gentleman who has been admitted as an inpatient secondary to concern for aspiration pneumonia. The patient's hemoglobin today was 6.8 g/dL. I've recommended transfusion of 2 units packed red blood cells. The patient is also having Benadryl, Tylenol and Lasix with the units of blood. The patient is also scheduled tomorrow for swallow study secondary to his abnormal study around a year ago. I suspect that with the patient's dementia that is gotten worse and his aspiration probably worsening. Otherwise the patient is a frail chronically ill 86-year-old gentleman who will be afforded treatment for his aspiration pneumonia and anemia in light of his DO NOT RESUSCITATE DO NOT INTUBATE category. I suspect that the patient will be appropriate for return to [facility] likely in one to 2 days. I've ordered repeat laboratory studies for the patient and all see him tomorrow and his overall treatment plan will be adjusted.
[2017-06-13] MEDS ORDERED: Furosemide 20 MG in Sodium Chloride 0.9% 50 ML IV SCH (16:00)
[2017-06-13] MEDS ORDERED: Gentamicin Pediatric 10 MG/ML 2 ML SDV SCH ×2 (16:30→21:00)
[2017-06-13] MEDS ORDERED: Acetaminophen 325 MG Tab PO ONE (16:36)
--- NOTE | 2017-06-13 16:43 | CR ---
EXAM DATE: 06/12/17 PATIENT'S AGE: 86 Patient: PETE MCDONALD Facility: [place], [place] Site . Site : [id number] Study: XRay Chest [id number]/10/2017 12:25:58 PM Ordering Physician: Doctor Cain Final Report: HISTORY: Possible aspiration. TECHNIQUE: Two views of the chest. COMPARISON: 05/12/2017. FINDINGS: Low lung volumes. There is no lung consolidation or pulmonary edema. No pneumothorax or pleural effusion. Degenerative changes of the spine. IMPRESSION: No acute disease. Dictated by Jet Fofana MD @ 06/12/2017 12:40:21 PM Dictated by: Jet Fofana MD @ 06/12/2017 12:40:27 (Electronic Signature) Report Signed by Proxy. [facility]ITAL[facility]
[2017-06-13] MEDS: Furosemide 20 MG/2 ML VIAL IV SCH ×2 (16:54→20:59)
[2017-06-14] MEDS: Piperacillin/Tazobactam 2.25 GM in Sodium Chloride 0.9% 50 ML IV SCH ×4 (01:21→20:21)
[2017-06-14] MEDS: Sodium Chloride 0.9% 1,000 ML IV SCH (01:39)
[2017-06-14] MEDS: Carbidopa/Levodopa 25-100 MG Tab PO SCH ×3 (06:06→21:09)
[2017-06-14 06:32] LABS: CHLORIDE,CL 108 mmol/L (98-110); SODIUM,NA 139 mmol/L (136-146)
[2017-06-14] MEDS: buPROPion 150 MG Tab.ER PO SCH (08:00)
[2017-06-14] MEDS: Acetaminophen 500 MG Tab PO SCH ×2 (08:00→21:08)
[2017-06-14] MEDS: Heparin Sodium 5,000 Units/ML Vial SUBCUT SCH ×2 (08:00→21:07)
[2017-06-14] MEDS: Losartan 50 MG Tab PO SCH (08:04)
[2017-06-14] MEDS: MEMANTINE HCL 28 MG PO SCH (08:05)
[2017-06-14] MEDS: Sertraline 100 MG Tab PO SCH (08:05)
[2017-06-14] MEDS: Diltiazem 180 MG Cap.CD PO SCH (08:05)
[2017-06-14] MEDS: Aspirin 81 MG Tab.EC PO SCH (08:05)
[2017-06-14] MEDS ORDERED: Potassium Chloride 20 MEQ Tab.ER PO ONE (09:22)
--- NOTE | 2017-06-14 10:44 | PCM.PN ---
- General Info Date of Service: 06/14/17 Admission Dx/Problem (Free Text): Admission Diagnosis/Problem Admission Diagnosis/Problem Aspiration pneumonia due to gastric secretions Subjective Update: Sitting in chair. Has no complaints. Doesn't answer appropriately. Denies pain Spoke with on second rounds, reports he is looking much improved. Awaiting swallow eval this afternoon. Functional Status: Reports: Ambulating - Patient Data Vitals - Most Recent: Last Vital Signs Temp 98.5 F 06/14/17 08:00 Pulse 61 06/14/17 07:29 Resp 16 06/14/17 07:29 BP 149/71 H 06/14/17 08:04 Pulse Ox 94 L 06/14/17 07:29 Weight - Most Recent: 60 kg I&O - Last 24 Hours: Intake & Output 06/13/17 06/14/17 06/14/17 22:59 06:59 14:59 Intake Total 1427 150 Output Total 525 3100 Balance 902 -2950 Lab Results Last 24 Hours: Laboratory Results - last 24 hr 06/13/17 06/13/17 06/14/17 Range/Units 11:43 16:31 05:39 WBC 11.53 H (4.0-11.0) K/uL RBC 3.58 L (4.50-5.90) M/uL Hgb 9.6 L (13.0-17.0) g/dL Hct 28.9 L (38.0-50.0) % MCV 80.7 (80.0-98.0) fL MCH 26.8 L (27.0-32.0) pg MCHC 33.2 (31.0-37.0) g/dL RDW Std Deviation 47.9 (28.0-62.0) fl RDW Coeff of Page 16 H (11.0-15.0) % Plt Count 270 (150-400) K/uL MPV 9.00 (7.40-12.00) fL Neut % (Auto) 75.3 (48.0-80.0) % Lymph % (Auto) 14.9 L (16.0-40.0) % Pine % (Auto) 8.4 (0.0-15.0) % Eos % (Auto) 1.2 (0.0-7.0) % Baso % (Auto) 0.2 (0.0-1.5) % Neut # (Auto) 8.7 H (1.4-5.7) K/uL Lymph # (Auto) 1.7 (0.6-2.4) K/uL Pine # (Auto) 1.0 H (0.0-0.8) K/uL Eos # (Auto) 0.1 (0.0-0.7) K/uL Baso # (Auto) 0.0 (0.0-0.1) K/uL Nucleated RBC % 0.0 /100WBC Nucleated RBCs # 0 K/uL Sodium (136-146) mmol/L Potassium (3.5-5.1) mmol/L Chloride (98-110) mmol/L Carbon Dioxide (21-31) mmol/L BUN (6.0-23.0) mg/dL Creatinine (0.6-1.5) mg/dL Est Cr Clr Drug Dosing mL/min Estimated GFR (MDRD) ml/min Glucose (60-110) mg/dL Calcium (8.8-10.8) mg/dL Total Bilirubin (0.1-1.5) mg/dL AST (5-40) IU/L ALT (8-54) IU/L Alkaline Phosphatase (40-150) Total Protein (6.0-8.0) g/dL Albumin (3.4-4.8) g/dL Globulin (2.0-3.5) g/dL Albumin/Globulin Ratio (1.3-2.8) Blood Type A NEGATIVE Antibody Screen NEGATIVE Crossmatch See Detail Tx Rx Implicated Unit 1 [id number] Unit 1 Component RBC Pre-Trans Blood Type TNP Pre-Trans Vis Hemolysis NEGATIVE Pre-Trans Icterus NEGATIVE Pre-Trans ELLEN IgG TNP Pre-Trans ELLEN Poly TNP Post-Trans Blood Type A NEGATIVE Post-Tx Visible Hemolys NEGATIVE Post-Trans Icterus NEGATIVE Post-Trans ELLEN IgG TNP Post-Trans ELLEN Poly NEGATIVE Reaction Interpretation NON-HEM TRANSF RX 06/14/17 Range/Units 05:39 WBC (4.0-11.0) K/uL RBC (4.50-5.90) M/uL Hgb (13.0-17.0) g/dL Hct (38.0-50.0) % MCV (80.0-98.0) fL MCH (27.0-32.0) pg MCHC (31.0-37.0) g/dL RDW Std Deviation (28.0-62.0) fl RDW Coeff of Page (11.0-15.0) % Plt Count (150-400) K/uL MPV (7.40-12.00) fL Neut % (Auto) (48.0-80.0) % Lymph % (Auto) (16.0-40.0) % Pine % (Auto) (0.0-15.0) % Eos % (Auto) (0.0-7.0) % Baso % (Auto) (0.0-1.5) % Neut # (Auto) (1.4-5.7) K/uL Lymph # (Auto) (0.6-2.4) K/uL Pine # (Auto) (0.0-0.8) K/uL Eos # (Auto) (0.0-0.7) K/uL Baso # (Auto) (0.0-0.1) K/uL Nucleated RBC % /100WBC Nucleated RBCs # K/uL Sodium 139 (136-146) mmol/L Potassium 3.3 L (3.5-5.1) mmol/L Chloride 108 (98-110) mmol/L Carbon Dioxide 23 (21-31) mmol/L BUN 18 (6.0-23.0) mg/dL Creatinine 1.0 (0.6-1.5) mg/dL Est Cr Clr Drug Dosing 45.00 mL/min Estimated GFR (MDRD) > 60.0 ml/min Glucose 96 (60-110) mg/dL Calcium 8.2 L (8.8-10.8) mg/dL Total Bilirubin 0.8 (0.1-1.5) mg/dL AST 9 (5-40) IU/L ALT < 6 L (8-54) IU/L Alkaline Phosphatase 46 (40-150) Total Protein 5.8 L (6.0-8.0) g/dL Albumin 3.1 L (3.4-4.8) g/dL Globulin 2.7 (2.0-3.5) g/dL Albumin/Globulin Ratio 1.2 L (1.3-2.8) Blood Type Antibody Screen Crossmatch Tx Rx Implicated Unit 1 Unit 1 Component Pre-Trans Blood Type Pre-Trans Vis Hemolysis Pre-Trans Icterus Pre-Trans ELLEN IgG Pre-Trans ELLEN Poly Post-Trans Blood Type Post-Tx Visible Hemolys Post-Trans Icterus Post-Trans ELLEN IgG Post-Trans ELLEN Poly Reaction Interpretation Med Orders - Current: Current Medications Acetaminophen (Tylenol) 650 mg RECTAL Q4H PRN PRN Reason: Pain (mild 1-3) Acetaminophen (Tylenol Extra Strength) 1,000 mg PO BID [facility] Last Admin: 06/14/17 08:00 Dose: 1,000 mg Aspirin (Halfprin) 81 mg PO DAILY [facility] Last Admin: 06/14/17 08:05 Dose: 81 mg Bupropion HCl (Wellbutrin Xl) 150 mg PO DAILY [facility] Last Admin: 06/14/17 08:00 Dose: 150 mg Carbidopa/Levodopa (Sinemet 25-100 Mg) 1 tab PO TID [facility] Last Admin: 06/14/17 06:06 Dose: 1 tab Diltiazem HCl (Cardizem Cd) 180 mg PO DAILY [facility] Last Admin: 06/14/17 08:05 Dose: 180 mg Heparin Sodium (Porcine) (Heparin Sodium) 5,000 units SUBCUT BID [facility] Last Admin: 06/14/17 08:00 Dose: 5,000 units Piperacillin Sod/Tazobactam (Sod 2.25 gm/ Sodium Chloride) 50 mls @ 100 mls/hr IV Q6H [facility] Last Admin: 06/14/17 08:58 Dose: 100 mls/hr Vancomycin HCl 1 gm/ Sodium (Chloride) 250 mls @ 166.667 mls/hr IV Q24H [facility] Last Admin: 06/13/17 14:27 Dose: 166.667 mls/hr Gentamicin Sulfate 80 mg/ (Sodium Chloride) 502 mls @ 502 mls/hr .XX MoWeFr@ 2100 [facility] Last Admin: 06/13/17 20:05 Dose: 502 mls/hr Losartan Potassium (Cozaar) 50 mg PO DAILY [facility] Last Admin: 06/14/17 08:04 Dose: 50 mg Memantine Hcl 1 Tab (28mg Er) 1 each PO DAILY [facility] Last Admin: 06/14/17 08:05 Dose: 1 each Polyethylene Glycol (Miralax) 17 gm PO ASDIRECTED PRN PRN Reason: Constipation Sertraline HCl (Zoloft) 100 mg PO DAILY [facility] Last Admin: 06/14/17 08:05 Dose: 100 mg Vancomycin HCl (Pharmacy To Dose - Vancomycin) 1 dose .XX ASDIRECTED [facility] Discontinued Medications Acetaminophen (Tylenol) 650 mg PO NOW ONE Stop: 06/13/17 16:37 Last Admin: 06/13/17 16:53 Dose: 650 mg Diphenhydramine HCl (Benadryl) 50 mg PO ONETIME ONE Stop: 06/13/17 13:24 Last Admin: 06/13/17 13:39 Dose: 50 mg Furosemide (Lasix) 20 mg IV Q4H [facility] Stop: 06/13/17 20:01 Last Admin: 06/13/17 20:59 Dose: 20 mg Gentamicin Sulfate (Gentamicin) 80 mg .XX MOWEFR [facility] Last Admin: 06/13/17 18:00 Dose: Not Given Gentamicin Sulfate (Gentamicin) 80 mg .XX MOWEFR [facility] Sodium Chloride (Normal Saline) 1,000 mls @ 125 mls/hr IV ASDIRECTED [facility] Last Admin: 06/14/17 01:39 Dose: 125 mls/hr Furosemide 20 mg/ Sodium (Chloride) 52 mls @ 100 mls/hr IV Q4HR [facility] Stop: 06/13/17 20:32 Morphine Sulfate (Morphine) 2 mg IVPUSH Q2H PRN PRN Reason: Pain (severe 7-10) Stop: 06/13/17 13:48 Potassium Chloride (Klor-Con M20) 40 meq PO ONETIME ONE Stop: 06/14/17 09:23 Last Admin: 06/14/17 09:54 Dose: 40 meq - Exam Quality Assessment: Urine Catheter (Suprapubic) General: Alert, Cooperative, No Acute Distress. No: Oriented Neck: Supple Lungs: Clear to Auscultation, Normal Respiratory Effort Cardiovascular: Regular Rate, Regular Rhythm, No Murmurs GI/Abdominal Exam: Normal Bowel Sounds, Soft, Non-Tender, No Organomegaly, No Distention, No Abnormal Bruit, No Mass, Pelvis Stable, Other (Suprapubic catheter in place, scant drainage from around insertion site, no erythema.) Extremities: Normal Inspection, Normal Range of Motion, Non-Tender, No Pedal Edema, Normal Capillary Refill Neurological: No New Focal Deficit Psy/Mental Status: Alert, Normal Affect, Normal Mood - Problem List & Annotations (1) Aspiration pneumonia due to food (regurgitated) SNOMED Code(s): 51886621 Code(s): J69.0 - PNEUMONITIS DUE TO INHALATION OF FOOD AND VOMIT Status: Acute Current Visit: Yes Qualifiers: Laterality: unspecified laterality Lung location: unspecified part of lung Qualified Code(s): J69.0 - Pneumonitis due to inhalation of food and vomit Annotation/Comment:: The patient is dehydrated (2) Dysphagia SNOMED Code(s): 27223248, 441085926 Code(s): R13.10 - DYSPHAGIA, UNSPECIFIED Status: Chronic Priority: High Current Visit: Yes Qualifiers: Dysphagia type: unspecified Qualified Code(s): R13.10 - Dysphagia, unspecified (3) Hypoxia SNOMED Code(s): 530812156, 728197973 Code(s): R09.02 - HYPOXEMIA Status: Chronic Priority: Medium Current Visit: Yes (4) Parkinson's disease dementia SNOMED Code(s): 886899967 Code(s): G20 - PARKINSON'S DISEASE; F02.80 - DEMENTIA IN OTH DISEASES CLASSD ELSWHR W/O BEHAVRL DISTURB Status: Chronic Priority: Medium Current Visit : Yes Qualifiers: Dementia behavioral disturbance: without behavioral disturbance Qualified Code(s): G20 - Parkinson's disease; F02.80 - Dementia in other diseases classified elsewhere without behavioral disturbance (5) History of suprapubic catheter SNOMED Code(s): 648406462 Code(s): Z98.890 - OTHER SPECIFIED POSTPROCEDURAL STATES Status: Chronic Current Visit: Yes - Problem List Review Problem List Initiated/Reviewed/Updated: Yes - Plan Plan:: This 86 year old male admitted with aspiration pneumonia and AMS 1. Aspiration Pneumonia: Continue with Vancomycin and Zosyn. Leukocytosis improving. Swallow study this afternoon. Likely secondary to worsening dementia and Parkinson's disease worsening dysphagia. 2. Anemia: Hgb improved today after 2 units pRBCs to 9.6. Will monitor closely. 3. Parkinson's with dementia: Continue Sinemet and Memantine, as well as Wellbutrin and Zoloft. 4. HTN: Continue Diltiazem and Losartan. VTE prophylaxis: Heparin. Dispo: 1-2 days pending improvement.
--- NOTE | 2017-06-14 15:42 | CR ---
EXAMINATION: Oropharyngeal video swallow study. HISTORY: Dysphasia COMPARISON: 03/09/2017 TECHNIQUE: Lateral images obtained, speech pathologist present, various barium consistencies provided . FINDINGS: There is intermittent delay within the oral phase with occasional premature spillage. Exten sive pooling was noted within the vallecula with all consistencies. Intermittent aspiration was noted with thin liquids. Penetration was also noted with nectar consistency, however this appeared to be s econdary to residual within the vallecula. There is good epiglottic inversion and tracheal elevation. IMPRESSION: 1. Intermittent aspiration with liquids. Please see speech pathology report for full details.
[2017-06-15] MEDS: Piperacillin/Tazobactam 2.25 GM in Sodium Chloride 0.9% 50 ML IV SCH ×2 (03:10→07:30)
[2017-06-15] MEDS: Carbidopa/Levodopa 25-100 MG Tab PO SCH (06:09)
[2017-06-15 07:53] LABS: CHLORIDE,CL 109 mmol/L (98-110); SODIUM,NA 139 mmol/L (136-146)
[2017-06-15] MEDS: Losartan 50 MG Tab PO SCH (08:08)
[2017-06-15] MEDS: Acetaminophen 500 MG Tab PO SCH (08:08)
[2017-06-15] MEDS: buPROPion 150 MG Tab.ER PO SCH (08:09)
[2017-06-15] MEDS: Sertraline 100 MG Tab PO SCH (08:09)
[2017-06-15] MEDS: Diltiazem 180 MG Cap.CD PO SCH (08:09)
[2017-06-15] MEDS: Aspirin 81 MG Tab.EC PO SCH (08:09)
[2017-06-15] MEDS: MEMANTINE HCL 28 MG PO SCH (08:10)
[2017-06-15] MEDS: Heparin Sodium 5,000 Units/ML Vial SUBCUT SCH (08:19)
--- NOTE | 2017-06-15 09:43 | CR ---
EXAMINATION: Portable chest radiograph. HISTORY: Aspiration pneumonia. FINDINGS: The trachea is midline. The cardiomediastinal silhouette is within normal limits. Chronic interstitia l prominence is noted. Left basilar atelectasis and or infiltrate is noted. Osseous structures appear osteopenic. IMPRESSION: Left basilar atelectasis and/or infiltrate noted.
--- NOTE | 2017-06-15 09:49 | PCM.DCSUM1 ---
Discharge Summary - Hospital Course Brief History: This 86-year-old gentleman with pmh of Parkinson's, dementia, dysphagia, and HTN who presented from [facility] with nursing concerns for altered mental status, low-grade fever and low oxygen saturations. One year ago was noted to have aspiration with thin liquids and was recommended that he be on a pured diet. On admisson time he was altered secondary to the dementia. He denied any pain. He reported no cough. In the ED leukocytosis of 20,000 noted, Hgb 9.1 BMP WNL. Ua + nitrites and moderate Leukocyte esterase. CXR negative for acute disease. - Discharge Data Discharge Date: 06/15/17 Discharge Disposition: DC/Tfer to [facility] 63 Condition: Good - Discharge Diagnosis/Problem(s) (1) Aspiration pneumonia due to food (regurgitated) SNOMED Code(s): 08881841 ICD Code: J69.0 - PNEUMONITIS DUE TO INHALATION OF FOOD AND VOMIT Status: Acute Problem Details: The patient is dehydrated Qualifiers: Laterality: unspecified laterality Lung location: unspecified part of lung Qualified Code(s): J69.0 - Pneumonitis due to inhalation of food and vomit (2) Dysphagia SNOMED Code(s): 69917856, 953142748 ICD Code: R13.10 - DYSPHAGIA, UNSPECIFIED Status: Chronic Priority: High Qualifiers: Dysphagia type: unspecified Qualified Code(s): R13.10 - Dysphagia, unspecified (3) Hypoxia SNOMED Code(s): 792290435, 557406822 ICD Code: R09.02 - HYPOXEMIA Status: Chronic Priority: Medium (4) Parkinson's disease dementia SNOMED Code(s): 659693765 ICD Code: G20 - PARKINSON'S DISEASE; F02.80 - DEMENTIA IN OTH DISEASES CLASSD ELSWHR W/O BEHAVRL DISTURB Status: Chronic Priority: Medium Qualifiers: Dementia behavioral disturbance: without behavioral disturbance Qualified Code(s): G20 - Parkinson's disease; F02.80 - Dementia in other diseases classified elsewhere without behavioral disturbance (5) History of suprapubic catheter SNOMED Code(s): 513302367 ICD Code: Z98.890 - OTHER SPECIFIED POSTPROCEDURAL STATES Status: Chronic - Patient Summary/Data Consults: Consultations 06/12/17 18:05 Consult to Speech Language Pathology [WIRE TRANSFER CLERK Evaluation and Treatment] [CONS] Routine - Patient Instructions Diet: Regular Diet as Tolerated (Small portions, pureed texture. Thin consistency, NO straws, all liquids and pureed per spoonful (1/2 tsp in volume) . Pills to be crushed. 1:1 feeder, slowly.) Showering/Bathing: May Shower Notify Provider of: Fever, Increased Pain, Swelling and Redness, Drainage, Nausea and/or Vomiting Other/Special Instructions: Supra pubic carrillo cares. PT/OT/ST to evaluate and treat. - Discharge Plan Prescriptions/Med Rec: Amoxicillin/Potassium Clav [Augmentin 875-125 Tablet] 1 each PO BID #8 tablet Home Medications: Home Meds Acetaminophen [Tylenol Extra Strength] 1,000 mg PO BID 01/28/14 [History] Aspirin [Adult Low Dose Aspirin EC] 81 mg PO DAILY 01/28/14 [History] Carbidopa/Levodopa [Carbidopa-Levodopa 25-100] 1 tab PO TID 01/28/14 [History] Losartan Potassium 50 mg PO DAILY 01/28/14 [History] Nitroglycerin [Nitroglycerin Patch 0.1 MG/Hr] 1 patch TRDERM DAILY 01/28/14 [ History] Polyethylene Glycol 3350 [MiraLAX] 17 gm PO ASDIRECTED PRN 01/28/14 [History] Sertraline [Zoloft] 100 mg PO DAILY 01/28/14 [History] Diltiazem [Cardizem CD] 180 mg PO DAILY 03/18/16 [History] Memantine HCl [Namenda Xr] 1 tab PO DAILY 03/18/16 [History] buPROPion HCl [Wellbutrin Xl] 150 mg PO DAILY 06/12/17 [History] Amoxicillin/Potassium Clav [Augmentin 875-125 Tablet] 1 each PO BID #8 tablet [Rx] Gentamicin 80 mg IRR MoWeFr@2100 vial 06/15/17 [Rx] Referrals: [facility] [Outside] Sarkis Monae MD [Physician] - 06/16/17 () - Discharge Summary/Plan Comment DC Time >30 min.: No Discharge Summary/Plan Comment: Discharge Diagnoses: Aspiration Pneumonia AMS-resolved Dysphagia HTN Parkinsons disease Dementia Hx suprapubic catheter Rich was admitted for aspiration pneumonia and treated with Vancomycin and Zosyn. There were no initial CXR findings of pneumonia, but based on symptoms and labwork. Barium swallow was completed after two days of treatment and when patient was no longer altered. Please see her notes, but worsening of dysphagia was noticed. I did speak with his regarding near future need for feeding tube, if this is what he and her would want. She reported they would think about it and discuss this with their PCP, Dr. Monae. He was notified of worsening dysphagia and admission and now transfer back to [place]. During his stay anemia with hgb 6.8 was noted. He was transfused 2 units PRBCs. This may be secondary to iron deficiency anemia from malnutrition seoncdary to dysphagia and Parkinsons. He was resumed on Iron as well. Today he is much more alert. Leukocytosis has improved to 7,000 and hgb 9.5. He will be transferred back to [place] today with Augmentin for 4 more days. He is to return to clinic or ED for concerns. Dr. Monae aware and will follow on next [place] rounds. at bedside and very pleased with care and verbalizes it is ok for transfer today. - General Info Date of Service: 06/15/17 Admission Dx/Problem (Free Text: Admission Diagnosis/Problem Admission Diagnosis/Problem Aspiration pneumonia due to gastric secretions Subjective Update: Much more alert and very talkative this am. Has no complaints asking what we found wrong with him. Denies chest pain or SOB. "Feeling pretty good". Functional Status: Reports: Pain Controlled - Review of Systems Pulmonary: Reports: No Symptoms. Denies: Shortness of Breath, Cough, Sputum Cardiovascular: Reports: No Symptoms. Denies: Chest Pain, Palpitations, Edema Gastrointestinal: Reports: No Symptoms. Denies: Abdominal Pain, Nausea, Vomiting Genitourinary: Reports: No Symptoms. Denies: Dysuria, Frequency, Burning Neurological: Reports: No Symptoms Psychiatric: Reports: No Symptoms - Patient Data Vitals - Most Recent: Last Vital Signs Temp 98.5 F 06/15/17 04:00 Pulse 60 06/15/17 04:00 Resp 12 06/15/17 04:00 BP 160/67 H 06/15/17 08:08 Pulse Ox 95 06/15/17 04:00 Weight - Most Recent: 60 kg I&O - Last 24 hours: Intake & Output 06/14/17 06/15/17 06/15/17 22:59 06:59 14:59 Intake Total 450 2080 50 Output Total 150 650 Balance 300 1430 50 Lab Results - Last 24 hrs: Laboratory Results - last 24 hr 06/15/17 06/15/17 Range/Units 07:25 07:25 WBC 7.20 (4.0-11.0) K/uL RBC 3.58 L (4.50-5.90) M/uL Hgb 9.5 L (13.0-17.0) g/dL Hct 29.2 L (38.0-50.0) % MCV 81.6 (80.0-98.0) fL MCH 26.5 L (27.0-32.0) pg MCHC 32.5 (31.0-37.0) g/dL RDW Std Deviation 49.8 (28.0-62.0) fl RDW Coeff of Page 17 H (11.0-15.0) % Plt Count 279 (150-400) K/uL MPV 8.80 (7.40-12.00) fL Neut % (Auto) 64.6 (48.0-80.0) % Lymph % (Auto) 21.8 (16.0-40.0) % Garrett % (Auto) 11.1 (0.0-15.0) % Eos % (Auto) 2.2 (0.0-7.0) % Baso % (Auto) 0.3 (0.0-1.5) % Neut # (Auto) 4.7 (1.4-5.7) K/uL Lymph # (Auto) 1.6 (0.6-2.4) K/uL Garrett # (Auto) 0.8 (0.0-0.8) K/uL Eos # (Auto) 0.2 (0.0-0.7) K/uL Baso # (Auto) 0.0 (0.0-0.1) K/uL Nucleated RBC % 0.0 /100WBC Nucleated RBCs # 0 K/uL Sodium 139 (136-146) mmol/L Potassium 3.7 (3.5-5.1) mmol/L Chloride 109 (98-110) mmol/L Carbon Dioxide 23 (21-31) mmol/L BUN 16 (6.0-23.0) mg/dL Creatinine 0.9 (0.6-1.5) mg/dL Est Cr Clr Drug Dosing 50.00 mL/min Estimated GFR (MDRD) > 60.0 ml/min Glucose 114 H (60-110) mg/dL Calcium 8.3 L (8.8-10.8) mg/dL Phosphorus 2.2 L (2.4-4.7) mg/dL Magnesium 1.4 L (1.5-2.3) mEq/L Med Orders - Current: Current Medications Acetaminophen (Tylenol) 650 mg RECTAL Q4H PRN PRN Reason: Pain (mild 1-3) Acetaminophen (Tylenol Extra Strength) 1,000 mg PO BID [facility] Last Admin: 06/15/17 08:08 Dose: 1,000 mg Aspirin (Halfprin) 81 mg PO DAILY [facility] Last Admin: 06/15/17 08:09 Dose: 81 mg Bupropion HCl (Wellbutrin Xl) 150 mg PO DAILY [facility] Last Admin: 06/15/17 08:09 Dose: 150 mg Carbidopa/Levodopa (Sinemet 25-100 Mg) 1 tab PO TID [facility] Last Admin: 06/15/17 06:09 Dose: 1 tab Diltiazem HCl (Cardizem Cd) 180 mg PO DAILY [facility] Last Admin: 06/15/17 08:09 Dose: 180 mg Heparin Sodium (Porcine) (Heparin Sodium) 5,000 units SUBCUT BID [facility] Last Admin: 06/15/17 08:19 Dose: 5,000 units Piperacillin Sod/Tazobactam (Sod 2.25 gm/ Sodium Chloride) 50 mls @ 100 mls/hr IV Q6H [facility] Last Admin: 06/15/17 07:30 Dose: 100 mls/hr Vancomycin HCl 1 gm/ Sodium (Chloride) 250 mls @ 166.667 mls/hr IV Q24H [facility] Last Admin: 06/14/17 14:04 Dose: 166.667 mls/hr Gentamicin Sulfate 80 mg/ (Sodium Chloride) 502 mls @ 502 mls/hr .XX MoWeFr@ 2100 [facility] Last Admin: 06/13/17 20:05 Dose: 502 mls/hr Losartan Potassium (Cozaar) 50 mg PO DAILY [facility] Last Admin: 06/15/17 08:08 Dose: 50 mg Memantine Hcl 1 Tab (28mg Er) 1 each PO DAILY [facility] Last Admin: 06/15/17 08:10 Dose: 1 each Polyethylene Glycol (Miralax) 17 gm PO ASDIRECTED PRN PRN Reason: Constipation Sertraline HCl (Zoloft) 100 mg PO DAILY [facility] Last Admin: 06/15/17 08:09 Dose: 100 mg Vancomycin HCl (Pharmacy To Dose - Vancomycin) 1 dose .XX ASDIRECTED [facility] Discontinued Medications Acetaminophen (Tylenol) 650 mg PO NOW ONE Stop: 06/13/17 16:37 Last Admin: 06/13/17 16:53 Dose: 650 mg Diphenhydramine HCl (Benadryl) 50 mg PO ONETIME ONE Stop: 06/13/17 13:24 Last Admin: 06/13/17 13:39 Dose: 50 mg Furosemide (Lasix) 20 mg IV Q4H [facility] Stop: 06/13/17 20:01 Last Admin: 06/13/17 20:59 Dose: 20 mg Gentamicin Sulfate (Gentamicin) 80 mg .XX MOWEFR [facility] Last Admin: 06/13/17 18:00 Dose: Not Given Gentamicin Sulfate (Gentamicin) 80 mg .XX MOWEFR [facility] Sodium Chloride (Normal Saline) 1,000 mls @ 125 mls/hr IV ASDIRECTED [facility] Last Admin: 06/14/17 01:39 Dose: 125 mls/hr Furosemide 20 mg/ Sodium (Chloride) 52 mls @ 100 mls/hr IV Q4HR [facility] Stop: 06/13/17 20:32 Morphine Sulfate (Morphine) 2 mg IVPUSH Q2H PRN PRN Reason: Pain (severe 7-10) Stop: 06/13/17 13:48 Potassium Chloride (Klor-Con M20) 40 meq PO ONETIME ONE Stop: 06/14/17 09:23 Last Admin: 06/14/17 09:54 Dose: 40 meq - Exam General: Reports: Alert, Cooperative, No Acute Distress. Denies: Oriented Neck: Reports: Supple Lungs: Reports: Clear to Auscultation, Normal Respiratory Effort Cardiovascular: Reports: Regular Rate, Regular Rhythm GI/Abdominal Exam: Normal Bowel Sounds, Soft, Non-Tender, No Organomegaly, No Distention, No Abnormal Bruit, No Mass, Pelvis Stable (Male) Exam: Other (suprapubic catheter in place) Extremities: Normal Inspection, Normal Range of Motion, Non-Tender, No Pedal Edema, Normal Capillary Refill Skin: Reports: Warm, Dry Neurological: Reports: No New Focal Deficit Psy/Mental Status: Reports: Alert, Normal Affect, Normal Mood *Q Meaningful Use (DIS) - VTE *Q VTE Criteria *Q: VTE Mechanical Contraindications *Q: At Risk for Falls - Stroke *Q Stroke Criteria *Q: - AMI *Q AMI Criteria *Q:
[2017-06-15 09:53] VITALS: BP 173/80
== END 2017-06-15 11:30 | DRG 179 ==
LOC: MW.ED 11:44 → MW.MS 12:50
PROVIDERS: ADMIT Internal Medicine; ATTEND Internal Medicine
PROC: 30233N1 Transfusion of Nonautologous Red Blood Cells into Peripheral Vein, Percutaneous Approach (ICD-10-PCS; principal; 2017-06-13)
DX: D50.9 Iron deficiency anemia, unspecified (principal); D72.829 Elevated white blood cell count, unspecified; I10 Essential (primary) hypertension; J69.0 Pneumonitis due to inhalation of food and vomit; R09.02 Hypoxemia; R13.10 Dysphagia, unspecified; E86.0 Dehydration; T17.920A Food in respiratory tract, part unspecified causing asphyxiation, initial encounter; G20 Parkinson's disease; F02.80 Dementia in other diseases classified elsewhere, unspecified severity, without behavioral disturbance, psychotic disturbance, mood disturbance, and anxiety; D63.8 Anemia in other chronic diseases classified elsewhere; R41.82 Altered mental status, unspecified; F32.9 Major depressive disorder, single episode, unspecified; R54 Age-related physical debility; Z66 Do not resuscitate; Z87.891 Personal history of nicotine dependence; Z79.82 Long term (current) use of aspirin; Z79.899 Other long term (current) drug therapy; Z93.50 Unspecified cystostomy status
CPT/HCPCS: 36415; 36430; 71010; 71010-26; 71020; 71020-26; 74230; 74230-26; 80048; 80053; 81003; 82150; 83605; 83690; 83735; 84100; 85025; 86850; 86900; 86901; 86920; 86921; 86922; 92611-GN; 99283; 99285; A9270-GY; J1580; J1644; J2543; J3370; J7040; J7050; P9016

== ENCOUNTER 2018-03-17 07:23 | Day surgery (SDC) | payer MEDICARE, BC ==
[2018-03-17] MEDS ORDERED: Bupivacaine 25%/EPINEPHrine/PF 30 ML ONE (07:27)
[2018-03-17] MEDS ORDERED: fentaNYL 100 MCG/2 ML SDV ONE (07:29)
[2018-03-17] MEDS ORDERED: Propofol 200 MG/20 ML SDV ONE (07:29)
[2018-03-17] MEDS ORDERED: Midazolam 1 MG/ML 2 ML SDV ONE (07:29)
[2018-03-17] MEDS ORDERED: Lidocaine 1% 0 ML ONE (07:30)
[2018-03-17] MEDS ORDERED: traMADol 50 MG Tab PO PRN (08:00)
[2018-03-17] MEDS ORDERED: ceFAZolin 2 GM in Premix Bag 1 BAG IV ONE (08:00)
[2018-03-17] MEDS ORDERED: Lactated Ringers 1,000 ML IV SCH (08:00)
[2018-03-17] MEDS ORDERED: Bupivacaine 0.25%/EPINEPHrine 1:200,000 10 ML SDV INJECT ONE (08:00)
--- NOTE | 2018-03-17 08:30 | PCM.PREANE ---
Preanesthetic Assessment - Anesthesia/Transfusion/Family Hx Anesthesia History: Prior Anesthesia Without Reaction Family History of Anesthesia Reaction: No Transfusion History: Prior Transfusion Without Reaction Intubation History: Unknown - Review of Systems General: No Symptoms Pulmonary: No Symptoms Cardiovascular: No Symptoms Gastrointestinal: No Symptoms Neurological: Tremors, Difficulty Walking Other: Reports: None - Physical Assessment Height: 1.7 m Weight: 63.957 kg ASA Class: 3 Mental Status: Alert & Oriented x3 Airway Class: Mallampati = 2 Dentition: Reports: Normal Dentition Thyro-Mental Finger Breadths: 3 Mouth Opening Finger Breadths: 2 ROM/Head Extension: Limited/Partial Lungs: Clear to Auscultation, Normal Respiratory Effort Cardiovascular: Regular Rate, Regular Rhythm - Allergies Allergies/Adverse Reactions: Allergies Allergy/AdvReac Type Severity Reaction Status Date / Time No Known Allergies Allergy Verified 03/14/18 08:16 - Blood Blood Available: No - Anesthesia Plan Pre-Op Medication Ordered: None - Acknowledgements Anesthesia Type Planned: MAC Pt an Appropriate Candidate for the Planned Anesthesia: Yes Alternatives and Risks of Anesthesia Discussed w Pt/Guardian: Yes Pt/Guardian Understands and Agrees with Anesthesia Plan: Yes PreAnesthesia Questionnaire HEENT History: Reports: Other (See Below) Other HEENT History: Dysphagia Cardiovascular History: Reports: CAD, Heart Murmur, Hypertension Respiratory History: Reports: None Gastrointestinal History: Reports: Other (See Below) Other Gastrointestinal History: dysphagia (crush all po meds) Genitourinary History: Reports: Retention, Urinary, Other (See Below) Other Genitourinary History: suprapubic cath Musculoskeletal History: Reports: Arthritis, Other (See Below) Other Musculoskeletal History: weakness and inability to ambulate Neurological History: Reports: Parkinson's Other Neuro History: Dementia with Lewy Bodies. Psychiatric History: Reports: Anxiety, Dementia, Depression Endocrine/Metabolic History: Reports: None Hematologic History: Reports: Anemia, Blood Transfusion(s) Oncologic (Cancer) History: Reports: Basal Cell Carcinoma, Squamous Cell Carcinoma Dermatologic History: Reports: Other (See Below) Other Dermatologic History: malignant neoplasm of skin - Infectious Disease History Infectious Disease History: Reports: Chicken Pox, Mumps - Past Surgical History Head Surgeries/Procedures: Reports: None HEENT Surgical History: Reports: Cataract Surgery Cardiovascular Surgical History: Reports: Coronary Artery Stent (x1 in about year 1999) GI Surgical History: Reports: Hernia, Inguinal (bilateral, total of 3 surgeries) Other GI Surgeries/Procedures: Hernia repair x3, Male Surgical History: Reports: Suprapubic Catheter Placement Dermatological Surgical History: Reports: Skin Biopsy - SUBSTANCE USE Smoking Status *Q: Former Smoker Recreational Drug Use History: No - HOME MEDS Home Medications: Home Meds Acetaminophen [Tylenol Extra Strength] 1,000 mg PO BID 01/28/14 [History] Carbidopa/Levodopa [Carbidopa-Levodopa 25-100] 1 tab PO TID 01/28/14 [History] Losartan Potassium 50 mg PO DAILY 01/28/14 [History] Nitroglycerin [Nitroglycerin Patch 0.1 MG/Hr] 1 patch TRDERM DAILY 01/28/14 [ History] Polyethylene Glycol 3350 [MiraLAX] 17 gm PO ASDIRECTED PRN 01/28/14 [History] Sertraline [Zoloft] 100 mg PO DAILY 01/28/14 [History] buPROPion HCl [Wellbutrin Xl] 150 mg PO DAILY 06/12/17 [History] Gentamicin 80 mg IRR MoWeFr@2100 vial 06/15/17 [Rx] Aspirin [[place]osevelt Aspirin] 81 mg PO DAILY 03/14/18 [History] Carboxymethylcellulose Sodium [Thera Tears] 1 drop EYEBOTH BEDTIME 03/14/18 [ History] Memantine HCl [Namenda Xr] 28 mg PO DAILY 03/14/18 [History] Sodium Chloride Irrig Solution [Curity] 1 dis.syr MISC ASDIRECTED PRN 03/14/18 [ History] - CURRENT (IN HOUSE) MEDS Current Meds: Current Medications Cefazolin Sodium/Dextrose 2 gm (/ Premix) 50 mls @ 100 mls/hr IV ONETIME ONE Stop: 03/17/18 08:29 Lactated Ringer's (Ringers, Lactated) 1,000 mls @ 125 mls/hr IV ASDIRECTED NABILA Tramadol HCl (Ultram) 50 mg PO Q4H PRN PRN Reason: Pain Discontinued Medications Bupivacaine HCl/Epinephrine Bitart (Marcaine 0.25%/Epinephrine 1:200,000) 10 ml INJECT ONETIME ONE Stop: 03/17/18 08:01 Fentanyl (Sublimaze) Confirm Administered Dose 100 mcg .ROUTE .STK-MED ONE Stop: 03/17/18 07:30 Bupivacaine HCl/Epinephrine Bitart (Sensorc Mpf 0.25%-Epi 1:111183) Confirm Administered Dose 30 mls @ as directed .ROUTE .STK-MED ONE Stop: 03/17/18 07:28 Lidocaine HCl (Xylocaine-Mpf 1%) Confirm Administered Dose 5 mls @ as directed .ROUTE .STK-MED ONE Stop: 03/17/18 07:31 Cefazolin Sodium/Dextrose (Ancef) Confirm Administered Dose 50 mls @ as directed .ROUTE .STK-MED ONE Stop: 03/17/18 08:24 Midazolam HCl (Versed 1 Mg/Ml) Confirm Administered Dose 2 mg .ROUTE .STK-MED ONE Stop: 03/17/18 07:30 Propofol (Diprivan 20 Ml) Confirm Administered Dose 200 mg .ROUTE .STK-MED ONE Stop: 03/17/18 07:30
[2018-03-17] MEDS ORDERED: Labetalol 100 MG/20 ML MDV ONE (09:51)
--- NOTE | 2018-03-17 11:17 | PCM.OPNOTE ---
- General Post-Op/Procedure Note Date of Surgery/Procedure: 03/17/18 Operative Procedure(s): Excision of right perauricual sqamous cell 6cm with complex 6cm repair. Excision of left nostril lesion 1.1cm with simple repair Pre Op Diagnosis: sqamous cell right preauricular and lesion left nostril Post-Op Diagnosis: Same Anesthesia Technique: Local, MAC Primary Surgeon: Cara Valdes Complications: None Condition: Good Free Text/Narrative:: Intake & Output 03/16/18 03/17/18 03/17/18 23:59 07:59 15:59 Intake Total 700 Balance 700
--- NOTE | 2018-03-17 11:36 | PCM48HPAN ---
Post Anesthesia Note - EVALUATION WITHIN 48HRS OF ANESTHETIC Vital Signs in Normal Range: Yes Patient Participated in Evaluation: Yes Respiratory Function Stable: Yes Airway Patent: Yes Cardiovascular Function Stable: Yes Hydration Status Stable: Yes Pain Control Satisfactory: Yes Nausea and Vomiting Control Satisfactory: Yes Mental Status Recovered: Yes Resp Rate: 11 - COMMENTS/OBSERVATIONS Free Text/Narrative:: no anesthesia problems
[2018-03-17 12:49] VITALS: BP 174/86
--- NOTE | 2018-03-17 17:56 | OR ---
SURGEON: ULISES WEST MD DATE OF PROCEDURE: 03/17/2018 PREOPERATIVE DIAGNOSES: 1. Right preauricular squamous cell carcinoma. 2. Left nostril lesion. POSTOPERATIVE DIAGNOSES: 1. Right preauricular squamous cell carcinoma. 2. Left nostril lesion. PROCEDURES: 1. Excision of right preauricular squamous cell carcinoma, 6 cm with complex 6 cm repair. 2. Excision of left nostril lesion, 1.1 cm with simple repair. ANESTHESIA: Local MAC. INDICATIONS: Mr. 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 It has grown larger and is causing difficulties and bleeding. Risks and benefits of removal were discussed with they and they were in agreement to proceed. Risks were including, but not limited to, bleeding, infection, damage to underlying or overlying structures, possible need for future interventions, possible scarring. PROCEDURE IN DETAIL: After informed consent was obtained and placed on the chart, the patient was brought to the operating theater and laid in supine position. After adequate MAC anesthesia was obtained, the area was prepped and draped, a time-out was completed to confirm side and site. 0.25% Marcaine with epinephrine was injected into the areas in a field block and once adequately anesthetized, attention was paid to the elliptical excision of the right preauricular lesion extending on to the lower ear surface itself, 6 cm excision total length by 3 cm in width. Once adequately excised, marked at the 12 o'clock position and was sent for frozen sections. Frozen sections came back as negative. Once the squamous cell was adequately excised, the area was meticulously hemostased and undermining was taken on to the face in a face lift type incision. Significant undermining was done here to allow that flap to advance for a 6 cm complex repair using deep 4-0 Monocryl stitches and a running 5-0 chromic for the skin. The patient tolerated this well and this was dressed with bacitracin. The left nostril lesion was then excised for an ellipse for a total of 1.1 cm. Once adequately excised and meticulously hemostased, 5-0 chromic sutures were used to close in a sub 1.1 cm fashion. The patient tolerated this well. All counts, needles were correct at the end of the case. FOLLOWUP INSTRUCTIONS: The patient will see us on a p.r.n. basis since all sutures are dissolvable. We will call with final pathology. They will call and follow up sooner if any problems, questions, or concerns. [id number] medications for pain control and return paperwork for the shelter provided. SANDRA / ROMMEL /[id number]
== END 2018-03-17 11:37 | disposition home or self-care (01) ==
LOC: MW.SDS 07:23
PROVIDERS: ATTEND Plastic Surgery
DX: C44.222 Squamous cell carcinoma of skin of right ear and external auricular canal (principal); J34.89 Other specified disorders of nose and nasal sinuses; I10 Essential (primary) hypertension; F32.9 Major depressive disorder, single episode, unspecified; G20 Parkinson's disease; F41.9 Anxiety disorder, unspecified; Z87.891 Personal history of nicotine dependence; Z79.82 Long term (current) use of aspirin; Z79.899 Other long term (current) drug therapy
CPT/HCPCS: 11442; 11646; 13152; J0690; J2250; J3010; J7120; J2704